=== PATIENT | male | born 1985 | race Caucasian/White ===

== ENCOUNTER 2017-09-07 09:50 | Inpatient (IN) | payer MEDICAID ==
[~2017-09-07] VITALS: Ht 172.7 cm; Wt 114.4 kg
[2017-09-07] MEDS ORDERED: cefTRIAXone 1GM/10ml IVPUSH 10 ML IV ONE (12:00)
[2017-09-07] MEDS ORDERED: cloNIDine HCL 0.1 MG TAB PO ONE (12:00)
[2017-09-07 12:22] LABS: Basophils # (auto) 0.1 uL; Basophils % (auto) 1.2 % (0.0-2.0); Eosinophils # (auto) 0.3 uL; Eosinophils % (auto) 4.3 % (0.0-7.0); Hematocrit 50.4 % (41.0-53.0); Hemoglobin 16.8 g/dL (13.5-17.5); Lymphocytes # (auto) 2.8 uL; Lymphocytes % (auto) 35.9 % (10.0-50.0); Mean Corpuscular Hemoglobin 32.6 pg (28.0-32.0); Mean Corpuscular Hgb Conc. 33.3 g/dL (32.0-36.0); Mean Corpuscular Volume 97.9 fL (80.0-100.0); Monocytes # (auto) 0.9 uL; Neutrophils # (auto) 3.7 uL; Neutrophils % (auto) 47.6 % (37.0-80.0); Nucleated Red Blood Cells % 0.2 %; Platelet Count (auto) 149 10^3/uL (140-450); Red Blood Cells 5.15 10^6/uL (4.5-5.90); Red Cell Distribution Width 15.4 % (11.8-14.3); White Blood Cell 7.9 10^3/uL (4.4-10.8)
[2017-09-07] MEDS ORDERED: cefTRIAXone SOD 1,000 MG VL ONE (12:26)
[2017-09-07 12:48] LABS: INR 1.23 (0.9-1.15); Partial Thromboplastin Time 27.6 sec (22.64-33.71); Prothrombin Time 13.4 sec (9.37-12.3)
[2017-09-07 13:23] LABS: Albumin 2.9 g/dL (3.4-5.0); BUN/Creatinine Ratio 15.7; Bilirubin, Total 1.1 mg/dL (0.2-1.0); Calcium 8.5 mg/dL (8.5-10.1); Total Protein 6.8 g/dL (6.4-8.2)
[2017-09-07] MEDS ORDERED: VANCOMYCIN PER PHARMACY 0 MG IV SCH (15:30)
[2017-09-07] MEDS ORDERED: NITROGLYCERIN 0.4 MG SL TAB SL PRN (15:30)
[2017-09-07] MEDS ORDERED: ONDANSETRON HCL 4 MG/2 ML VIAL IV PRN (15:30)
[2017-09-07] MEDS ORDERED: MORPHINE SULFATE 4 MG/ML SYR/VIAL IV PRN ×2 (15:30)
[2017-09-07] MEDS ORDERED: FUROSEMIDE 40 MG/4 ML VIAL IV ONE (15:30)
[2017-09-07] MEDS ORDERED: ACETAMINOPHEN 325 MG TAB PO PRN (15:30)
[2017-09-07] MEDS ORDERED: POTASSIUM CHL 10 Meq TABLET PO ONE (15:30)
[2017-09-07] MEDS ORDERED: DOCUSATE SOD 100 MG CAP PO PRN (15:30)
[2017-09-07] MEDS ORDERED: TEMAZEPAM 15 MG CAP PO PRN (15:30)
[2017-09-07] MEDS ORDERED: ZINC SULFATE 220 MG CAP PO ONE (16:00)
[2017-09-07] MEDS ORDERED: MULTIPLE VITAMIN TAB PO ONE (16:00)
[2017-09-07] MEDS: VANCOMYCIN 1GM/250ML 250 ML IV SCH (16:46)
[2017-09-07] MEDS: BOOST PLUS 8 ounce PO SCH ×2 (18:00→18:10)
[2017-09-07] MEDS: ALBUTEROL SULF 2.5 MG/0.5ML(0.5%) NEB SOLN NEB SCH (18:20)
[2017-09-07] MEDS: IPRATROPIUM BROM 0.5 MG/2.5ML INH SOL NEB SCH (18:20)
[2017-09-07 20:00] VITALS: BP 156/115
[2017-09-07] MEDS: SODIUM CHLOR 0.9% PF (SALINE LOCK) 10ML VIAL IV SCH (21:32)
[2017-09-07] MEDS: FAMOTIDINE 20 MG TAB PO SCH (21:32)
[2017-09-07] MEDS: ASCORBIC ACID 500 MG TAB PO SCH (21:32)
[2017-09-07 23:01] VITALS: BP 165/118
[2017-09-07 23:41] VITALS: BP 156/115
[2017-09-08] MEDS: ALBUTEROL SULF 2.5 MG/0.5ML(0.5%) NEB SOLN NEB SCH ×4 (00:23→18:00)
[2017-09-08] MEDS: IPRATROPIUM BROM 0.5 MG/2.5ML INH SOL NEB SCH ×4 (00:23→18:00)
[2017-09-08] MEDS: VANCOMYCIN 1GM/250ML 250 ML IV SCH ×2 (00:23→08:29)
[2017-09-08] MEDS: HYDROcodone-ACET 5/325MG TAB PO PRN ×3 (02:38→22:46)
[2017-09-08 05:30] VITALS: BP 167/111
[2017-09-08] MEDS: SODIUM CHLOR 0.9% PF (SALINE LOCK) 10ML VIAL IV SCH ×3 (05:54→21:37)
[2017-09-08] MEDS: cloNIDine HCL 0.1 MG TAB PO PRN ×2 (06:08→17:24)
[2017-09-08 06:26] LABS: Basophils # (auto) 0.1 uL; Basophils % (auto) 0.7 % (0.0-2.0); Eosinophils # (auto) 0.3 uL; Eosinophils % (auto) 3.9 % (0.0-7.0); Hematocrit 50.2 % (41.0-53.0); Hemoglobin 16.7 g/dL (13.5-17.5); Lymphocytes # (auto) 3.2 uL; Lymphocytes % (auto) 42.1 % (10.0-50.0); Mean Corpuscular Hemoglobin 32.6 pg (28.0-32.0); Mean Corpuscular Hgb Conc. 33.2 g/dL (32.0-36.0); Monocytes # (auto) 0.5 uL; Monocytes % (auto) 7.1 % (0.0-12.0); Neutrophils # (auto) 3.5 uL; Neutrophils % (auto) 46.2 % (37.0-80.0); Nucleated Red Blood Cells % 0.3 %; Platelet Count (auto) 139 10^3/uL (140-450); Red Blood Cells 5.12 10^6/uL (4.5-5.90); White Blood Cell 7.5 10^3/uL (4.4-10.8)
[2017-09-08 06:46] LABS: Albumin 2.8 g/dL (3.4-5.0); BUN/Creatinine Ratio 16.7; Bilirubin, Total 0.8 mg/dL (0.2-1.0); Calcium 8.4 mg/dL (8.5-10.1); Total Protein 6.8 g/dL (6.4-8.2)
[2017-09-08 07:52] VITALS: BP 168/99
[2017-09-08] MEDS: BOOST PLUS 8 ounce PO SCH ×3 (08:02→17:53)
[2017-09-08] MEDS ORDERED: cefTRIAXone 1GM/10ml IVPUSH 10 ML IV SCH (09:00)
[2017-09-08] MEDS ORDERED: POTASSIUM CHL 10 Meq TABLET PO SCH (10:00)
[2017-09-08] MEDS ORDERED: FUROSEMIDE 40 MG/4 ML VIAL IV SCH (10:00)
[2017-09-08] MEDS: ZINC SULFATE 220 MG CAP PO SCH (11:00)
[2017-09-08] MEDS: MULTIPLE VITAMIN TAB PO SCH (11:01)
[2017-09-08] MEDS: ASCORBIC ACID 500 MG TAB PO SCH ×2 (11:01→21:38)
[2017-09-08] MEDS: FAMOTIDINE 20 MG TAB PO SCH ×2 (11:01→21:38)
[2017-09-08 11:32] VITALS: BP 161/100
[2017-09-08] MEDS ORDERED: ISOSORBIDE MONONITRATE 60 MG TAB PO ONE (13:15)
[2017-09-08 14:11] LABS: Urine Bacteria FEW /hpf (None Seen); Urine Blood Negative /uL (Negative); Urine Mucus FEW (None Seen); Urine Specific Gravity 1.004 (1.001-1.035); Urine WBC 18 /hpf (0 - 3)
[2017-09-08 14:21] LABS: Alcohol, Urine < 3.0 mg/dL (0-5); Amphetamine Screen, Urine NEGATIVE (NEGATIVE); Barbiturate Scree,Urine NEGATIVE (NEGATIVE); Benzodiazephine Screen, Urine NEGATIVE (NEGATIVE); Cannabinoid Screen, Urine NEGATIVE (NEGATIVE); Cocaine Screen, Urine NEGATIVE (NEGATIVE); Opiate Scree,Urine NEGATIVE (NEGATIVE); Phencyclidine Screen, Urine NEGATIVE (NEGATIVE)
[2017-09-08] MEDS: FUROSEMIDE 40 MG/4 ML VIAL IV SCH (17:53)
[2017-09-08] MEDS: hydrALAZINE HCL 25 MG TAB PO SCH (21:37)
[2017-09-08] MEDS: POTASSIUM CHL 10 Meq TABLET PO SCH (21:37)
[2017-09-08 22:00] VITALS: BP 140/97
[2017-09-09 05:00] VITALS: BP 161/105
[2017-09-09] MEDS: FUROSEMIDE 40 MG/4 ML VIAL IV SCH ×2 (05:40→17:32)
[2017-09-09] MEDS: SODIUM CHLOR 0.9% PF (SALINE LOCK) 10ML VIAL IV SCH ×3 (05:40→21:01)
[2017-09-09] MEDS: IPRATROPIUM BROM 0.5 MG/2.5ML INH SOL NEB SCH ×5 (05:53→23:35)
[2017-09-09] MEDS: ALBUTEROL SULF 2.5 MG/0.5ML(0.5%) NEB SOLN NEB SCH ×5 (05:53→23:35)
[2017-09-09 06:17] LABS: BUN/Creatinine Ratio 20.5; Calcium 8.5 mg/dL (8.5-10.1); Potassium 3.8 mmol/L (3.5-5.1)
[2017-09-09] MEDS: cloNIDine HCL 0.1 MG TAB PO PRN (06:51)
[2017-09-09] MEDS: HYDROcodone-ACET 5/325MG TAB PO PRN ×2 (06:52→16:06)
[2017-09-09] MEDS: BOOST PLUS 8 ounce PO SCH ×3 (07:31→17:32)
[2017-09-09 07:58] VITALS: BP 166/14
[2017-09-09] MEDS: ZINC SULFATE 220 MG CAP PO SCH (08:53)
[2017-09-09] MEDS: hydrALAZINE HCL 25 MG TAB PO SCH ×2 (08:53→20:59)
[2017-09-09] MEDS: POTASSIUM CHL 10 Meq TABLET PO SCH ×2 (08:54→20:59)
[2017-09-09] MEDS: ISOSORBIDE MONONITRATE 60 MG TAB PO SCH (08:54)
[2017-09-09] MEDS: MULTIPLE VITAMIN TAB PO SCH (08:54)
[2017-09-09] MEDS: FAMOTIDINE 20 MG TAB PO SCH ×2 (08:55→20:59)
[2017-09-09] MEDS: ASCORBIC ACID 500 MG TAB PO SCH ×2 (08:55→20:59)
[2017-09-09] MEDS ORDERED: METOLAZONE 5 MG TAB PO ONE (11:00)
[2017-09-09] MEDS ORDERED: CARVEDILOL 3.125 MG TAB PO ONE (11:00)
[2017-09-09 12:02] VITALS: BP 162/111
[2017-09-09 17:24] VITALS: BP 161/96
[2017-09-09] MEDS: CARVEDILOL 3.125 MG TAB PO SCH (21:00)
[2017-09-09 21:59] VITALS: BP 156/105
[2017-09-10 05:00] VITALS: BP 143/89
[2017-09-10] MEDS: FUROSEMIDE 40 MG/4 ML VIAL IV SCH (05:56)
[2017-09-10] MEDS: SODIUM CHLOR 0.9% PF (SALINE LOCK) 10ML VIAL IV SCH (05:57)
[2017-09-10] MEDS: ALBUTEROL SULF 2.5 MG/0.5ML(0.5%) NEB SOLN NEB SCH ×2 (07:10→12:42)
[2017-09-10] MEDS: BOOST PLUS 8 ounce PO SCH (08:00)
[2017-09-10 08:07] LABS: Calcium 9.4 mg/dL (8.5-10.1); Potassium 3.5 mmol/L (3.5-5.1)
[2017-09-10 09:00] VITALS: BP 142/87
[2017-09-10] MEDS: ASCORBIC ACID 500 MG TAB PO SCH (10:52)
[2017-09-10] MEDS: POTASSIUM CHL 10 Meq TABLET PO SCH (10:52)
[2017-09-10] MEDS: MULTIPLE VITAMIN TAB PO SCH (10:53)
[2017-09-10] MEDS: ZINC SULFATE 220 MG CAP PO SCH (10:53)
[2017-09-10] MEDS: CARVEDILOL 3.125 MG TAB PO SCH (10:55)
[2017-09-10] MEDS: hydrALAZINE HCL 25 MG TAB PO SCH (10:56)
[2017-09-10] MEDS: ISOSORBIDE MONONITRATE 60 MG TAB PO SCH (10:57)
[2017-09-10] MEDS: FAMOTIDINE 20 MG TAB PO SCH (10:57)
[2017-09-10] MEDS ORDERED: HYDR25TA35 PO (11:17)
[2017-09-10] MEDS ORDERED: ISO60SRT PO (11:17)
[2017-09-10] MEDS ORDERED: FURO40TA4 PO (11:17)
[2017-09-10] MEDS ORDERED: CAR125T PO (11:17)
[2017-09-10] MEDS ORDERED: SPIR25TA89 PO (11:17)
[2017-09-10] MEDS ORDERED: SODIUM CHLORIDE 0.9 % NEB SOLN 3ML NEB ONE (12:26)
[2017-09-10] MEDS: IPRATROPIUM BROM 0.5 MG/2.5ML INH SOL NEB SCH (12:42)
[2017-09-10 13:00] VITALS: BP 153/93
== END 2017-09-10 13:15 | disposition home or self-care (01) | DRG 720 ==
LOC: ER 09:50 → TELE 09:51 → TELE-WESTW 19:58
PROVIDERS: ADMIT Internal Medicine; ATTEND Internal Medicine
DX: A41.9 Sepsis, unspecified organism (principal); I50.43 Acute on chronic combined systolic (congestive) and diastolic (congestive) heart failure; D68.9 Coagulation defect, unspecified; I42.9 Cardiomyopathy, unspecified; E44.0 Moderate protein-calorie malnutrition; I27.20 Pulmonary hypertension, unspecified; J45.901 Unspecified asthma with (acute) exacerbation; I11.0 Hypertensive heart disease with heart failure; E66.9 Obesity, unspecified; F15.90 Other stimulant use, unspecified, uncomplicated; F60.2 Antisocial personality disorder; F90.9 Attention-deficit hyperactivity disorder, unspecified type; I87.2 Venous insufficiency (chronic) (peripheral); K40.90 Unilateral inguinal hernia, without obstruction or gangrene, not specified as recurrent; Z72.0 Tobacco use; Z82.49 Family history of ischemic heart disease and other diseases of the circulatory system; Z88.8 Allergy status to other drugs, medicaments and biological substances; Z91.14 Patient's other noncompliance with medication regimen; Z68.38 Body mass index [BMI] 38.0-38.9, adult; L03.116 Cellulitis of left lower limb; L03.115 Cellulitis of right lower limb; L03.311 Cellulitis of abdominal wall
CPT/HCPCS: 36415; 71046; 74176; 80048; 80053; 80307; 81001; 83605; 83880; 84484; 85025; 85610; 85730; 87040; 87081; 87086; 93005; 93306; 94640; 96365; 96375; J0696

== ENCOUNTER 2018-01-07 02:33 | Inpatient (IN) | payer MEDICAID ==
[~2018-01-07] VITALS: Ht 175.3 cm; Wt 121.8 kg
[~2018-01-07 02:33] MED LIST: CAR125T PO; FURO40TA4 PO; HYDR25TA35 PO; ISO60SRT PO; SPIR25TA89 PO
[2018-01-07] MEDS ORDERED: FUROSEMIDE 40 MG/4 ML VIAL IV ONE (03:00)
[2018-01-07 03:26] LABS: Basophils # (auto) 0.1 uL; Basophils % (auto) 0.8 % (0.0-2.0); Eosinophils # (auto) 0.1 uL; Eosinophils % (auto) 1.7 % (0.0-7.0); Lymphocytes # (auto) 2.7 uL; Lymphocytes % (auto) 32.6 % (10.0-50.0); Mean Corpuscular Hemoglobin 32.8 pg (28.0-32.0); Mean Corpuscular Hgb Conc. 33.3 g/dL (32.0-36.0); Mean Corpuscular Volume 98.3 fL (80.0-100.0); Monocytes # (auto) 0.7 uL; Monocytes % (auto) 8.4 % (0.0-12.0); Neutrophils # (auto) 4.7 uL; Neutrophils % (auto) 56.5 % (37.0-80.0); Nucleated Red Blood Cells % 0.1 %; Platelet Count (auto) 229 10^3/uL (140-450); Red Blood Cells 4.89 10^6/uL (4.5-5.90); Red Cell Distribution Width 16.8 % (11.8-14.3); White Blood Cell 8.4 10^3/uL (4.4-10.8)
[2018-01-07 03:39] LABS: Albumin 2.1 g/dL (3.4-5.0); BUN/Creatinine Ratio 12.8; Calcium 7.8 mg/dL (8.5-10.1); Magnesium 1.8 mg/dL (1.6-2.6); Potassium 4.4 mmol/L (3.5-5.1)
[2018-01-07 03:44] LABS: Bilirubin, Total 1.8 mg/dL (0.2-1.0); Total Protein 6.2 g/dL (6.4-8.2)
[2018-01-07] MEDS ORDERED: methylPREDNISolone SOD SUCC 125 MG/2 ML VL IV ONE (04:30)
[2018-01-07] MEDS ORDERED: IPRATROPIUM BROM 0.5 MG/2.5ML INH SOL NEB ONE (04:30)
[2018-01-07] MEDS ORDERED: ALBUTEROL SULF 2.5 MG/0.5ML(0.5%) NEB SOLN NEB ONE (04:30)
[2018-01-07 04:57] LABS: Urine Bacteria FEW /hpf (None Seen); Urine Blood TRACE /uL (Negative); Urine Hyaline Cast FEW /lpf (0 - 2); Urine WBC 54 /hpf (0 - 3)
[2018-01-07] MEDS ORDERED: cloNIDine HCL 0.1 MG TAB ONE (06:05)
[2018-01-07] MEDS ORDERED: cloNIDine HCL 0.1 MG TAB PO PRN (07:00)
[2018-01-07] MEDS ORDERED: ONDANSETRON HCL 4 MG/2 ML VIAL IV PRN (07:00)
[2018-01-07] MEDS ORDERED: ACETAMINOPHEN 325 MG TAB PO PRN (07:00)
[2018-01-07] MEDS ORDERED: NITROGLYCERIN 0.4 MG SL TAB SL PRN (07:00)
[2018-01-07] MEDS ORDERED: MORPHINE SULF(PF) 0.5MG/ML 10ML VIAL IV PRN (07:00)
[2018-01-07] MEDS ORDERED: ALBUTEROL SULF 2.5 MG/0.5ML(0.5%) NEB SOLN NEB PRN (07:00)
[2018-01-07] MEDS ORDERED: IPRATROPIUM BROM 0.5 MG/2.5ML INH SOL NEB PRN (07:00)
[2018-01-07] MEDS ORDERED: TEMAZEPAM 15 MG CAP PO PRN (07:00)
[2018-01-07] MEDS ORDERED: CALCIUM GLUC 4.65meq/50ml D5AE 50 ML IV ONE (08:00)
[2018-01-07] MEDS: cefTRIAXone 1GM/10ml IVPUSH 10 ML IV SCH (08:36)
[2018-01-07] MEDS: FAMOTIDINE 20 MG TAB PO SCH ×2 (09:26→21:46)
[2018-01-07] MEDS: ENOXAPARIN SOD 40 MG/0.4 ML SYRINGE SC SCH (09:26)
[2018-01-07] MEDS: hydrALAZINE HCL 25 MG TAB PO SCH ×2 (09:26→21:45)
[2018-01-07] MEDS: CARVEDILOL 3.125 MG TAB PO SCH ×2 (09:26→21:46)
[2018-01-07] MEDS: ISOSORBIDE MONONITRATE 60 MG TAB PO SCH (09:26)
[2018-01-07] MEDS: SPIRONOLACTONE 25 MG TAB PO SCH (09:26)
[2018-01-07 09:38] VITALS: BP 160/106
[2018-01-07 16:20] VITALS: BP 142/67
[2018-01-07] MEDS: FUROSEMIDE 20 MG/2 ML VIAL IV SCH (18:17)
[2018-01-07 20:00] VITALS: BP 137/70
[2018-01-07 21:52] VITALS: BP 137/70
[2018-01-08] MEDS: HYDROcodone-ACET 5/325MG TAB PO PRN ×2 (05:04→21:29)
[2018-01-08 05:30] VITALS: BP 135/0
[2018-01-08] MEDS: FUROSEMIDE 20 MG/2 ML VIAL IV SCH (05:47)
[2018-01-08 06:26] LABS: Basophils # (auto) 0 uL; Basophils % (auto) 0.2 % (0.0-2.0); Eosinophils # (auto) 0 uL; Hematocrit 45.9 % (41.0-53.0); Hemoglobin 15.2 g/dL (13.5-17.5); Lymphocytes # (auto) 1.2 uL; Lymphocytes % (auto) 8.6 % (10.0-50.0); Mean Corpuscular Hgb Conc. 33.1 g/dL (32.0-36.0); Mean Corpuscular Volume 99.7 fL (80.0-100.0); Monocytes # (auto) 0.6 uL; Monocytes % (auto) 4.4 % (0.0-12.0); Neutrophils # (auto) 12.3 uL; Neutrophils % (auto) 86.8 % (37.0-80.0); Nucleated Red Blood Cells % 0.1 %; Platelet Count (auto) 205 10^3/uL (140-450); Red Cell Distribution Width 16.9 % (11.8-14.3); White Blood Cell 14.1 10^3/uL (4.4-10.8)
[2018-01-08 06:38] LABS: Potassium 3.9 mmol/L (3.5-5.1)
[2018-01-08 06:43] LABS: Calcium 7.9 mg/dL (8.5-10.1)
[2018-01-08 06:46] LABS: Bilirubin, Total 1.2 mg/dL (0.2-1.0); Total Protein 5.8 g/dL (6.4-8.2)
[2018-01-08 07:55] VITALS: BP 142/87
[2018-01-08] MEDS: cefTRIAXone 1GM/10ml IVPUSH 10 ML IV SCH (10:26)
[2018-01-08] MEDS: FAMOTIDINE 20 MG TAB PO SCH ×2 (10:26→21:38)
[2018-01-08] MEDS: ENOXAPARIN SOD 40 MG/0.4 ML SYRINGE SC SCH ×2 (10:26→10:31)
[2018-01-08] MEDS: hydrALAZINE HCL 25 MG TAB PO SCH ×2 (10:26→21:43)
[2018-01-08] MEDS: SPIRONOLACTONE 25 MG TAB PO SCH (10:26)
[2018-01-08] MEDS: ISOSORBIDE MONONITRATE 60 MG TAB PO SCH (10:27)
[2018-01-08] MEDS: CARVEDILOL 3.125 MG TAB PO SCH ×2 (10:27→21:43)
[2018-01-08 10:40] VITALS: BP 142/87
[2018-01-08] MEDS ORDERED: METOLAZONE 5 MG TAB PO ONE (11:45)
[2018-01-08] MEDS ORDERED: POTASSIUM CHL 20 Meq TABLET PO ONE (11:45)
[2018-01-08 13:00] VITALS: BP 124/72
[2018-01-08 17:58] VITALS: BP 148/88
[2018-01-08] MEDS ORDERED: FUROSEMIDE 20 MG/2 ML VIAL IV SCH (18:00)
[2018-01-08 22:00] VITALS: BP 142/88
== END 2018-01-08 22:27 | disposition left against medical advice (07) | DRG 194 ==
LOC: ER 02:34 → TELE 02:35 → TELE-EAST 17:19
PROVIDERS: ADMIT Nurse Practitioner; ATTEND Internal Medicine
DX: I11.0 Hypertensive heart disease with heart failure (principal); I27.29 Other secondary pulmonary hypertension; E44.0 Moderate protein-calorie malnutrition; E66.01 Morbid (severe) obesity due to excess calories; I42.0 Dilated cardiomyopathy; J45.901 Unspecified asthma with (acute) exacerbation; I07.1 Rheumatic tricuspid insufficiency; I50.43 Acute on chronic combined systolic (congestive) and diastolic (congestive) heart failure; G47.00 Insomnia, unspecified; G40.909 Epilepsy, unspecified, not intractable, without status epilepticus; I42.7 Cardiomyopathy due to drug and external agent; Z53.21 Procedure and treatment not carried out due to patient leaving prior to being seen by health care provider; T43.625A Adverse effect of amphetamines, initial encounter; N39.0 Urinary tract infection, site not specified; R74.8 Abnormal levels of other serum enzymes; F90.9 Attention-deficit hyperactivity disorder, unspecified type; J44.9 Chronic obstructive pulmonary disease, unspecified; E78.00 Pure hypercholesterolemia, unspecified; E78.5 Hyperlipidemia, unspecified; F17.210 Nicotine dependence, cigarettes, uncomplicated; Z91.19 Patient's noncompliance with other medical treatment and regimen; Z68.39 Body mass index [BMI] 39.0-39.9, adult; Z88.1 Allergy status to other antibiotic agents; Z79.899 Other long term (current) drug therapy; Y92.89 Other specified places as the place of occurrence of the external cause
CPT/HCPCS: 36415; 71045; 80053; 81001; 82542; 83735; 83880; 84484; 85025; 93005; 94640; 96374; 96375; 96376